=== PATIENT | female | born 1980 | race Two or more races ===

== ENCOUNTER 2017-05-22 17:55 | Emergency (ER) | payer OTHER, BC ==
[~2017-05-22] VITALS: Ht 167.6 cm; Wt 98.6 kg
[~2017-05-22 17:55] MED LIST: MACRODANTIN100 MG PO; OMEPRAZOLE20 MG PO; PRENATAL TABLE1 EAC3 PO; ZANTAC150 MG PO
[2017-05-22 17:58] VITALS: BP 151/88
[2017-05-22 18:51] LABS: BASOPHIL COUNT 0.1 K/uL (0-0.1); EOSINOPHIL (%) 1.2 % (0-5); EOSINOPHIL COUNT 0.1 K/uL (0-0.3); HEMATOCRIT 39.7 % (36.0-46.0); IMMATURE GRANULOCYTE (%) 0.3 % (0.0-0.7); INSTRUMENT ABS NEUTROPHIL CT 6.9 K/uL; MCH 29.8 PG (29.0-34.0); MCHC 35.8 G/DL (30.0-36.0); MCV 83.4 FL (83-99); MEAN PLAT.VOLUME 10.8 uM^3 (9.5-12.4); MONOCYTE (%) 5.1 % (3-12); MONOCYTE COUNT 0.6 K/uL (0-0.8); NEUTROPHIL (%) 64.4 % (45-76); NEUTROPHIL COUNT 6.9 K/uL (1.8-6.4); PLATELET COUNT 306 K/uL (156-360); RBC DIS.WIDTH-CV 12.5 % (11.8-14.6); RBC DIS.WIDTH-SD 37.9 % (39-53); RED BLOOD COUNT 4.76 M/uL (3.80-5.20); WHITE BLOOD COUNT 10.8 K/uL (4.1-10.2)
[2017-05-22 19:05] LABS: CHLORIDE 105 mEq/L (99-109); SODIUM 139 mEq/L (136-147)
[2017-05-22 19:07] LABS: GLUCOSE 96 mg/dL (70-99)
[2017-05-22 19:09] LABS: ANION GAP 10 MEQ/L (2-14); TOTAL BILIRUBIN 0.3 mg/dL (0.0-1.0)
[2017-05-22 19:11] LABS: ALKALINE PHOSPHATASE 53 IU/L (3-129); GFR ESTIMATE (CALCULATED) > 59 mL/min/
[2017-05-22 19:12] LABS: UREA NITROGEN (BUN) 13 mg/dL (9-23)
[2017-05-22 19:13] LABS: DIRECT BILIRUBIN 0.1 mg/dL (0.0-0.3)
[2017-05-22 19:20] LABS: QUANTITATIVE HCG < 4.0 MIU/ML
[2017-05-24 11:11] LABS: HBSG INDEX 0.19; HPCA INDEX 0.18
[2017-05-24 11:12] LABS: AHBS INDEX 302.75; HIV INDEX 0.11; HIV-1/2 AB/AG COMBO Nonreactive
[2017-05-24 11:17] LABS: HEPATITIS B SURFACE ANTIBODY REACTIVE
[2017-05-24 11:19] LABS: ANTI-HEPATITIS B CORE (TOTAL) Nonreactive; HBCT INDEX 0.14
== END 2017-05-22 18:33 | disposition home or self-care (01) ==
LOC: EME 17:55
PROVIDERS: Nurse Practitioner Family
DX: Z77.21 Contact with and (suspected) exposure to potentially hazardous body fluids (principal); Y99.0 Civilian activity done for income or pay
CPT/HCPCS: 80053; 82248; 84100; 84702; 85025; 86703; 86704; 86706; 86803; 87340; 99281; 99283